=== PATIENT | female | born 1985 | race Caucasian/White ===

== ENCOUNTER → 2020-06-25 | Outpatient (CLI) | payer OTHER ==
[~2020-06-25] MED LIST: CETI10TA74 PO; HYDR-2145 PO; OMEP40CA45 PO; proair inhaler
[2020-06-28 12:30] VITALS: BP 105/62
== END ==
LOC: LAB 13:08
PROVIDERS: ATTEND Nurse Anesthetist, Certified Registered
DX: Z01.812 Encounter for preprocedural laboratory examination (principal); Z20.822 Contact with and (suspected) exposure to COVID-19
CPT/HCPCS: C9803; U0003

== ENCOUNTER → 2020-06-28 | Day surgery (SDC) | payer OTHER ==
[~2020-06-28] MED LIST changes: +IPRATRPIUM/ALBUTEROL 0.5/2.5MG 3 ML NEBU. NEB PRN; +IV RINGERS SOLUTION,LACTATED 1,000 ML IV SCH; +LIDOCAINE 2% PF 5 ML VIAL. ONE; +MIDAZOLAM HCL PF 2 MG/2 ML VIAL. IV ONE; +ONDANSETRON PF 4 MG/2 ML VIAL. IV PRN; +PROPOFOL 10,000 MCG/ML (20ML) VIAL IV ONE
[2020-06-28 12:30] VITALS: BP 105/62
--- NOTE | 2020-07-03 14:07 | PATHOLOGY ---
[facility] Accession Number: [id number] . 01 Material submitted: . PART A: gastrointestinal site - ANTRUM BIOPSY PART B: duodenum - DUODENAL BIOPSY FOR CELIAC PART C: ileum - DISTAL ILEUM BIOPSY. Modifiers: distal PART D: colon - LEFT COLON BIOPSY. Modifiers: left . 01 Clinical history: . LOWER LEFT QUADRANT PAIN . 02 Diagnosis: A. Gastric biopsies, antrum: - Chronic gastritis, mild. . B. Duodenal biopsies: - No significant pathologic abnormalities. . C. Small intestine mucosa, distal ileum biopsies: - Focal acute inflammation. . D. Colonic mucosa, left colon biopsies: - No significant pathologic abnormalities, with several focally hyperplastic mucosal-associated lymphoid aggregates. . (GLADYSM:maribell; 07/03/2020) [facility] 07/03/2020 1029 Local . 02 Comment: Sections of the gastric biopsy reveal segments of gastric antral and gastric body mucosa showing congestion and mild chronic inflammation. A properly controlled immunoperoxidase stain for Helicobacter is negative for Helicobacter organisms. . Sections of the duodenal biopsy reveal multiple segments of small intestine mucosa. Where best oriented, the mucosal villi show no sprue-like changes or significant inflammatory changes. . Sections of the distal ileum biopsy reveal multiple segments of small intestine mucosa focally containing mucosal-associated lymphoid tissue and showing no sprue-like changes or significant inflammatory changes. One of the biopsy segments shows focal acute inflammation consistent with mucosa bordering an ulcer. There is no evidence of malignancy. . Sections of the left colon biopsy reveal multiple segments of colonic mucosa containing several, focally hyperplastic mucosal-associated lymphoid aggregates. There is no evidence of a chronic destructive colitis, lymphocytic colitis, or collagenous colitis. There is no evidence of an ischemic colitis or acute infectious colitis. . (ANA LAURA:maribell; 07/03/2020) . . Special stain performed: Immunoperoxidase stain for Helicobacter on A1 . 02 Electronically signed: . Trung Santiago MD, Pathologist NPI- [id number] . 01 Gross description: . A. The specimen is received in formalin, labeled "Annette Zaid, antrum biopsy". Received are two segments of pale dasilva tissue measuring 0.3 and 0.5 cm in maximum dimensions. The specimen is submitted entirely in cassette A1. . B. The specimen is received in formalin, labeled "Annette Zaid, duodenal biopsy". Received are five segments of pale dasilva tissue ranging in size from 0.3-0.5 cm in maximum dimensions. The specimen is submitted entirely in cassette B1. . C. The specimen is received in formalin, labeled "Annette Zaid, distal ileum biopsies". Received are four segments of pale dasilva tissue ranging in size from 0.4-1.0 cm in maximum dimensions. The specimen is submitted entirely in cassette C1. . D. The specimen is received in formalin, labeled "Annette Zaid, L colon biopsies". Received are four segments of pale dasilva tissue ranging in size from 0.5-0.8 cm in maximum dimensions. The specimen is submitted entirely in cassette D1. (CAA; 07/02/2020) QAC/QAC 07/02/2020 1544 Local . 02 Pathologist provided ICD-10: K29.50, K52.9, R10.32 . 02 CPT . 229734, 533101, 251364, 251314, G29142 Specimen Comment: Report sent to / Performed at: 01 [facility] [address], [place] [id number] MD Benji Sauceda MD Phone: [phone] Performed at: 02 [facility] [address] [place], [place] [id number] MD Trung Santiago MD Phone: [phone]
== END | disposition home or self-care (01) ==
LOC: SURG 10:00
PROVIDERS: ATTEND Internal Medicine Gastroenterology
DX: R10.32 Left lower quadrant pain (principal); K52.9 Noninfective gastroenteritis and colitis, unspecified; K63.3 Ulcer of intestine; K63.89 Other specified diseases of intestine; R12 Heartburn; K29.00 Acute gastritis without bleeding; Z80.0 Family history of malignant neoplasm of digestive organs; Z88.0 Allergy status to penicillin; Z79.899 Other long term (current) drug therapy; Z88.8 Allergy status to other drugs, medicaments and biological substances
CPT/HCPCS: 43239; 45380; J2001; J2704; J7120

== ENCOUNTER 2021-09-23 09:05 | Emergency (ER) | payer OTHER ==
[~2021-09-23] VITALS: Ht 170.2 cm; Wt 115.9 kg
[~2021-09-23 09:05] MED LIST changes: -IPRATRPIUM/ALBUTEROL 0.5/2.5MG 3 ML NEBU. NEB PRN; -IV RINGERS SOLUTION,LACTATED 1,000 ML IV SCH; -LIDOCAINE 2% PF 5 ML VIAL. ONE; -MIDAZOLAM HCL PF 2 MG/2 ML VIAL. IV ONE; -OMEP40CA45 PO; +OMEP40CA7 PO; -ONDANSETRON PF 4 MG/2 ML VIAL. IV PRN; -PROPOFOL 10,000 MCG/ML (20ML) VIAL IV ONE
[2021-09-23 09:20] VITALS: BP 150/93
--- NOTE | 2021-09-23 09:27 | PHYS DOC ---
Past History Additional Past Medical Histor: kidney stones Past Surgical History: Cholecystectomy, Tonsillectomy, Tubal ligation General Adult EDM: Chief Complaint: FLANK PAIN HPI: HPI: Patient is a 35-year-old female who presents here with left flank pain and left lower quadrant abdominal pain, which began at 5 PM yesterday. She reports nausea and vomiting and loose stools. She reports that a small, loose bowel movement this morning. She denies recent travel, hospitalization, sick contacts, denies recent antibiotic use. She denies urinary symptoms. She denies melena or hematochezia. She denies fevers or chills. She denies rash of her flank or abdomen. She denies any abdominal or flank trauma or injury. She denies chest pain, cough, dyspnea, dizziness, diaphoresis, syncope. She has had previous diverticulitis, she is also had previous kidney stones. She denies that this pain feels similar to previous kidney stone pain, but rather reports "it feels like my bowels." She has had a previous exploratory laparoscopy and salpingectomy. LMP within the last month. Review of Systems: Review of Systems: Constitutional: Denies fever or chills HENT: Denies nasal congestion or sore throat Respiratory: Denies cough or shortness of breath Cardiovascular: Denies chest pain or edema GI: Left lower quadrant abdominal pain and left flank pain, nausea, vomiting, loose stool, denies melena or hematochezia. : Denies urinary symptoms Musculoskeletal: Left flank pain Integument: Denies rash Neurologic: Denies headache, focal weakness or sensory changes Psychiatric: Denies depression or anxiety Allergies: Allergies: Allergies Coded Allergies Type Severity Reaction Last Updated Verified cephalexin Allergy Severe hives 06/28/20 Yes moxifloxacin Allergy Severe hives, SOB, racing heart 06/28/20 Yes Penicillins Allergy Intermediate hives 06/28/20 Yes ceftriaxone Allergy Intermediate hives 06/28/20 Yes Physical Exam: PE: Constitutional: Well developed, well nourished, she does appear to be in pain and uncomfortable, non-toxic appearance. [] HENT: Normocephalic, atraumatic Eyes: Sclera are anicteric, conjunctive are normal Neck: Normal range of motion, no tenderness, supple, no stridor. [] Cardiovascular:Heart rate regular rhythm, 2 radial and +2 posterior tibial pulses bilaterally Lungs & Thorax: Bilateral breath sounds clear to auscultation, no rales, rhonchi or wheezes Abdomen: Abdomen is obese, soft, nondistended, normal bowel sounds, left lower quadrant tenderness to palpation. Voluntary guarding, no rebound tenderness, no rigidity, left CVA tenderness. No flank or abdominal ecchymoses. No palpable pulsatile mass. Skin: Warm, dry, no erythema, no rash. No jaundice. Back: No tenderness, left CVA tenderness Extremities: No tenderness, no cyanosis, no clubbing, ROM intact, no edema. [] Neurologic: Alert and oriented X 3, normal motor function, normal sensory function, no focal deficits noted. [] Psychologic: Affect normal, judgement normal, mood normal. [] Current Patient Data: Vital Signs: Vital Signs Date Time Temp Pulse Resp B/P (MAP) Pulse Ox O2 Delivery O2 Flow Rate FiO2 09/23/21 09:20 91 18 150/93 (112) 96 Room Air EKG: EKG: [] Radiology/Procedures: Radiology/Procedures: IMAGING REPORT Signed PATIENT: LIMA NIELSEN JACCOUNT: [id number] : 1985 LOCATION: ER AGE: 35 SEX: F EXAM STATUS: REG ER ORD. PHYSICIAN: MARCOS LOVE DO REASON: L sided flank and abdominal pain PROCEDURE: CT ABDOMEN PELVIS WO CONTRAST PQRS Compliance Statement: One or more of the following individualized dose reduction techniques were utilized for this examination: 1. Automated exposure control 2. Adjustment of the mA and/or kV according to patient size 3. Use of iterative reconstruction technique CT abdomen/pelvis without contrast 09/23/2021 10:19 AM INDICATION: Left flank and abdominal pain COMPARISON: CT abdomen/pelvis 01/16/2007 TECHNIQUE: Multiple axial CT images of the abdomen and pelvis were obtained without intravenous contrast. Coronal and sagittal reformats are provided. FINDINGS: Visualized portions of the lung bases are clear. Heart size is within normal limits. Evaluation of the solid abdominal viscera is limited by lack of intravenous contrast. Hypoattenuation the hepatic parenchyma suggestive of diffuse hepatic steatosis.. Spleen, bilateral adrenal glands, and pancreas are normal in appearance. Cholecystectomy changes. There is dense calcification identified along the gallbladder fossa measuring 2.1 cm. The abdominal aorta is normal in course and caliber. There are no pathologically enlarged lymph nodes in the abdomen and pelvis. There is no abdominal free fluid. There is no free intraperitoneal air. Small and large bowel are normal in caliber. There is no evidence for bowel obstruction. There are no pericolonic inflammatory changes. A normal, nondilated appendix is visualized without adjacent inflammatory changes. There is an 8 mm calculus in the proximal left ureter immediately distal to the left ureteropelvic junction resulting in moderate left hydroureteronephrosis. There is left perinephric fat stranding. No calculi identified within the right kidney, ureter or urinary bladder. Urinary bladder is within normal limits given degree of distention. Uterus and adnexa are normal by CT. No suspicious osseous abnormality is identified. IMPRESSION: 1. 8 mm calculus identified within the proximal left ureter immediately distal to the left ureteropelvic junction. There is associated moderate left hydroureteronephrosis with perinephric fat stranding. Correlate with urinalysis to assess for superimposed infection. Next on 2. Diffuse hepatic steatosis. Electronically signed by: Samuel Garner MD (09/23/2021 10:27 AM) [id number] DICTATED AND SIGNED BY: SAMUEL GARNER MD DATE: 09/23/21 1021 CC: RAJIV BANUELOS MD; MARCOS LOVE DO ~ Heart Score: C/O Chest Pain: No Risk Factors: Risk Factors: DM, Current or recent (<one month) smoker, HTN, HLP, family history of CAD, obesity. Risk Scores: Score 0 - 3: 2.5% MACE over next 6 weeks - Discharge Home Score 4 - 6: 20.3% MACE over next 6 weeks - Admit for Clinical Observation Score 7 - 10: 72.7% MACE over next 6 weeks - Early Invasive Strategies Course & Med Decision Making: Course & Med Decision Making Pertinent Labs and Imaging studies reviewed. (See chart for details) This patient is given IV fluids, IV Toradol, IV morphine and IV Zofran. She is resting much more comfortably. IV Cipro given for infected stone/pyelonephritis. I have discussed all of the findings, differential diagnosis and plan of care with her. She will require hospitalization and urology consultation for a large obstructing stone/infected stone. She initially requested transfer to [facility], because she has had urologic care there previously, [facility] has no beds. She then requested [facility], they also have no beds. She then requested [facility], they have no beds and are boarding in the ED, but I was able to procure a bed for her at [facility], the patient accepts this. She is excepted for admission at [facility] by Dr. Singleton. Ginette Disclaimer: Ginette Disclaimer: This electronic medical record was generated, in whole or in part, using a voice recognition dictation system. Departure Departure: Impression: Primary Impression: Left ureteral stone Additional Impressions: Hydronephrosis, left Renal colic on left side Pyelonephritis Disposition: SHORT TERM HOSPITAL ([facility]) Admitting Physician: Other (Dr. Singleton at [facility]) Condition: STABLE Referrals: RAJIV BANUELOS MD (PCP) MARCOS LOVE DO September 23, 2021 09:27
[2021-09-23] MEDS ORDERED: MORPHINE SULFATE 4 MG/ML DISP.SYRIN. IV ONE (09:45)
[2021-09-23] MEDS ORDERED: IV NORMAL SALINE 1,000ML 1,000 ML IV ONE (09:45)
[2021-09-23] MEDS ORDERED: ONDANSETRON PF 4 MG/2 ML VIAL. IVP ONE ×2 (09:45→13:30)
--- NOTE | 2021-09-23 10:29 | RAD ---
PQRS Compliance Statement: One or more of the following individualized dose reduction techniques were utilized for this examinat ion: 1. Automated exposure control 2. Adjustment of the mA and/or kV according to patient size 3. Use of iterative reconstruction technique CT abdomen/pelvis without contrast 09/23/2021 10:19 AM INDICATION: Left flank and abdominal pain COMPARISON: CT abdomen/pelvis 01/16/2007 TECHNIQUE: Multiple axial CT images of the abdomen and pelvis were obtained without intravenous contr ast. Coronal and sagittal reformats are provided. FINDINGS: Visualized portions of the lung bases are clear. Heart size is within normal limits. Evaluation of the solid abdominal viscera is limited by lack of intravenous contrast. Hypoattenuation the hepatic parenchyma suggestive of diffuse hepatic steatosis.. Spleen, bilateral ad renal glands, and pancreas are normal in appearance. Cholecystectomy changes. There is dense calcific ation identified along the gallbladder fossa measuring 2.1 cm. The abdominal aorta is normal in course and caliber. There are no pathologically enlarged lymph nodes in the abdomen and pelvis. There is no abdominal free fluid. There is no free intraperitoneal air. Small and large bowel are normal in caliber. There is no evidence for bowel obstruction. There are no pericolonic inflammatory changes. A normal, nondilated appendix is visualized without adjacent infla mmatory changes. There is an 8 mm calculus in the proximal left ureter immediately distal to the left ureteropelvic ju nction resulting in moderate left hydroureteronephrosis. There is left perinephric fat stranding. No calculi identified within the right kidney, ureter or urinary bladder. Urinary bladder is within norm al limits given degree of distention. Uterus and adnexa are normal by CT. No suspicious osseous abnor mality is identified. IMPRESSION: 1. 8 mm calculus identified within the proximal left ureter immediately distal to the left ureteropel rommel junction. There is associated moderate left hydroureteronephrosis with perinephric fat stranding. Correlate with urinalysis to assess for superimposed infection. Next on 2. Diffuse hepatic steatosis. Electronically signed by: Lolly Haro MD (09/23/2021 10:27 AM) [id number]
[2021-09-23 10:36] LABS: BASO # 0.1 x10^3/uL (0.0-0.2); BASO % 0 % (0-3); EOS % 0 % (0-3); HEMATOCRIT 40.6 % (36.0-47.0); HEMOGLOBIN 13.3 g/dL (12.0-15.5); LYMPH # 0.9 x10^3/uL (1.0-4.8); LYMPH % 3 % (24-48); MEAN CORPUSCULAR HEMOGLOBIN 28 pg (25-35); MEAN CORPUSCULAR HGB CONC 33 g/dL (31-37); MEAN CORPUSCULAR VOLUME 86 fL (79-100); MONO # 1.3 x10^3/uL (0.0-1.1); MONO % 4 % (0-9); NEUT # 27.7 x10^3uL (1.8-7.7); NEUT % 93 % (31-73); PLATELET COUNT 541 x10^3/uL (140-400); RED BLOOD COUNT 4.72 x10^6/uL (3.50-5.40); RED CELL DISTRIBUTION WIDTH 14.5 % (11.5-14.5); WHITE BLOOD COUNT 29.9 x10^3/uL (4.0-11.0)
[2021-09-23 10:44] LABS: CALCIUM 9.3 mg/dL (8.5-10.1); CREATININE 1.1 mg/dL (0.6-1.0); GFR 57.2; POTASSIUM 3.7 mmol/L (3.5-5.1)
[2021-09-23 10:48] LABS: PREG TEST PT QUAL NEGATIVE (NEG)
[2021-09-23 10:50] LABS: ALBUMIN 3.7 g/dL (3.4-5.0); TOTAL BILIRUBIN 0.6 mg/dL (0.2-1.0); TOTAL PROTEIN 7.5 g/dL (6.4-8.2)
[2021-09-23] MEDS ORDERED: KETOROLAC 15 MG/ML VIAL. IVP ONE (11:00)
[2021-09-23 11:56] LABS: BACTERIA,URINE MANY /HPF (0-FEW); CLARITY,URINE TURBID; COLOR,URINE YELLOW; GLUCOSE,URINE NEG (NEG); NITRITE,URINE POS (NEG); UROBILINOGEN,URINE 0.2 mg/dL (0.2 mg/dL); WBC,URINE TNTC /HPF (0-4)
[2021-09-23] MEDS ORDERED: CIPROFLOXACIN 400MG PREMIX 200 ML IV ONE (12:15)
[2021-09-23] MEDS ORDERED: HYDROmorphone PF 1 MG/ML DISP.SYRIN IVP ONE (13:30)
[2021-09-23 18:42] LABS: % BANDS 2 % (0-9); % MONOS 5 % (0-10); % SEGS 93 % (35-66)
[2021-09-23 18:43] LABS: ANISOCYTOSIS MOD; PLT ESTIMATE ADEQUATE (ADEQUATE)
== END 2021-09-23 15:00 | disposition short-term general hospital (02) ==
LOC: ER 09:05
DX: N13.2 Hydronephrosis with renal and ureteral calculous obstruction (principal); N12 Tubulo-interstitial nephritis, not specified as acute or chronic; Z87.442 Personal history of urinary calculi; Z90.49 Acquired absence of other specified parts of digestive tract; Z98.51 Tubal ligation status; Z88.1 Allergy status to other antibiotic agents; Z88.0 Allergy status to penicillin
CPT/HCPCS: 36415; 74176; 80053; 81001; 83690; 84703; 85007; 85025; 87077; 87086; 87186; 96361; 96365; 96375; 96376; 99285; J0744; J1170; J1885; J2270; J2405; J7030